=== PATIENT | male | born 1970 | race Caucasian/White ===

== ENCOUNTER 2017-08-11 09:20 | Day surgery (SDC) | payer OTHER, BC ==
[~2017-08-11] VITALS: Ht 193 cm; Wt 90.9 kg
[~2017-08-11 09:20] MED LIST: ALEVE220 M2 PO; QNASL8.7 GM BOTH NARES; ZYRTEC10 M2 PO
[2017-08-11 10:02] VITALS: BP 150/78
[2017-08-11] MEDS ORDERED: MOTRIN600 MG PO (12:56)
[2017-08-11] MEDS ORDERED: NORCO 5/3251 TABLET PO (12:56)
[2017-08-11 13:30] VITALS: BP 137/90
[2017-08-11 14:16] VITALS: BP 124/80
== END 2017-08-11 14:22 | disposition home or self-care (01) ==
LOC: SDC 09:20
PROC: 0YU60JZ Supplement Left Inguinal Region with Synthetic Substitute, Open Approach (ICD-10-PCS; principal; 2017-08-11)
DX: K40.20 Bilateral inguinal hernia, without obstruction or gangrene, not specified as recurrent (principal); K42.9 Umbilical hernia without obstruction or gangrene; I25.10 Atherosclerotic heart disease of native coronary artery without angina pectoris; R01.1 Cardiac murmur, unspecified; K21.9 Gastro-esophageal reflux disease without esophagitis; F17.210 Nicotine dependence, cigarettes, uncomplicated
CPT/HCPCS: C1781; J0131; J0690; J1100; J1170; J2250; J2405; J2710; S0020

== ENCOUNTER 2018-03-30 05:27 | Day surgery (SDC) | payer BC ==
[~2018-03-30] VITALS: Ht 193 cm; Wt 90.7 kg
[~2018-03-30 05:27] MED LIST changes: +MOTRIN600 MG PO; +NORCO 5/3251 TABLET PO
[2018-03-30 06:04] VITALS: BP 132/73
[2018-03-30] MEDS ORDERED: MOTRIN600 MG PO (09:04)
[2018-03-30] MEDS ORDERED: PERCOCET 5/31 TABLET PO (09:04)
[2018-03-30 09:55] VITALS: BP 144/90
[2018-03-30 10:30] VITALS: BP 147/78
== END 2018-03-30 10:39 | disposition home or self-care (01) ==
LOC: SDC 05:27
PROC: 0YU60JZ Supplement Left Inguinal Region with Synthetic Substitute, Open Approach (ICD-10-PCS; principal; 2018-03-30)
DX: K40.91 Unilateral inguinal hernia, without obstruction or gangrene, recurrent (principal); K21.9 Gastro-esophageal reflux disease without esophagitis; F17.210 Nicotine dependence, cigarettes, uncomplicated
CPT/HCPCS: 93005; C1781; J0690; J2250; J3010; J7643; S0020